=== PATIENT | female | born 1965 | race African-American/Black ===

== ENCOUNTER 2016-10-25 15:49 | Emergency (ER) | payer MEDICAID ==
[~2016-10-25] VITALS: Ht 167.6 cm; Wt 72.6 kg
--- NOTE | 2016-10-25 16:17 | Emergency Room Report ---
History of Present Illness General Chief Complaint: Abdominal Pain Source: Patient Present Illness HPI Patient present with complaints of diffuse lower abdominal pain She complains of vaginal spotting Decreased oral intake Pain is 7/10 cramping in nature Patient initially reports chest pain to the triage however upon evaluation reports of the pain is in the lower abdomen she feels some pressure moving upward into the lower epigastric area Denies any diarrhea denies any flank pain however she does have some lower back cramping as well Patient had bowel movement yesterday however feels that she has had decreased movement in general Patient is in pain management Allergies: Coded Allergies: ERYTHROMYCIN BASE (Verified Allergy, Intermediate, 10/25/16) Patient History Past Medical History: see triage record Pertinent Family History: none Now: No Reviewed Nursing Documentation: PMH: Agreed, PSxH: Agreed Nursing Documentation-PMH Hx Cardiac Problems: No Hx Hypertension: No Hx Pacemaker: No Hx Asthma: No Hx COPD: No Hx Diabetes: No Hx Cancer: No Hx Dialysis: No History Of Psychiatric Problem: No Hx Neurological Problems: Yes - herniated disc Hx Cerebrovascular Accident: No Hx Seizures: No Review of Systems All Other Systems: negative except mentioned in HPI Physical Exam Vital Signs Date Time Temp Pulse Resp B/P Pulse Ox O2 Delivery O2 Flow Rate FiO2 10/25/16 15:52 98.1 78 16 127/78 98 Room Air Sp02 EP Interpretation: reviewed, normal General Appearance: mild distress Head: normocephalic, atraumatic Eyes: bilateral eye EOMI, bilateral eye PERRL ENT: normal pharynx Neck: full range of motion, supple Respiratory: lungs clear, normal breath sounds Cardiovascular #1: regular rate, rhythm, no edema Gastrointestinal: soft, tenderness - Patient feels uncomfortable diffusely difficult to localize the pain mainly bilateral lower abdomen, , Genitourinary: no CVA tenderness Musculoskeletal: normal inspection Neurologic: alert, oriented x3 Skin: normal color, no rash Lymphatic: no adenopathy Medical Decision Making Diagnostic Impression: Primary Impression: Abdominal pain Additional Impressions: Fibroid Fibroid, uterine Leukocytosis ER Course Multiple differentials considered including but not limited to, ovarian torsion , appendicitis, bowel obstruction Given the patient had initially CAT scan from outside facility this was not initially obtained patient's blood work however reveals elevated white blood for count therefore CT was obtained for evaluation Multiple differentials are red on the CT including tubo-ovarian abscess At this time patient was requested for admission secondary to insurance purposes requires transfer at this time remaining hemodynamically stable and appropriate for transfer for continued care at primary facility patient was given pain medicine along with antibiotics and requires close inpatient followup with multi specialty consultation Labs Test 10/25/16 16:55 10/25/16 17:40 White Blood Count 18.8 K/UL (4.8-10.8) Red Blood Count 3.93 M/UL (4.20-5.40) Hemoglobin 8.6 G/DL (12.0-16.0) Hematocrit 26.9 % (37.0-47.0) Mean Corpuscular Volume 69 FL (80-99) Mean Corpuscular Hemoglobin 21.9 PG (27.0-31.0) Mean Corpuscular Hemoglobin Concent 31.9 G/DL (32.0-36.0) Red Cell Distribution Width 19.3 % (11.6-14.8) Platelet Count 533 K/UL (150-450) Mean Platelet Volume 6.9 FL (6.5-10.1) Neutrophils (%) (Auto) % (45.0-75.0) Lymphocytes (%) (Auto) % (20.0-45.0) Monocytes (%) (Auto) % (1.0-10.0) Eosinophils (%) (Auto) % (0.0-3.0) Basophils (%) (Auto) % (0.0-2.0) Differential Total Cells Counted 100 Neutrophils % (Manual) 71 % (45-75) Lymphocytes % (Manual) 14 % (20-45) Monocytes % (Manual) 12 % (1-10) Eosinophils % (Manual) 2 % (0-3) Basophils % (Manual) 0 % (0-2) Band Neutrophils 1 % (0-8) Platelet Estimate Increased Platelet Morphology Normal Hypochromasia 1+ Anisocytosis 1+ Microcytosis 1+ Sodium Level 138 mEQ/L (135-145) Potassium Level 3.6 mEQ/L (3.4-4.9) Chloride Level 97 mEQ/L (98-107) Carbon Dioxide Level 26 mEQ/L (20-30) Anion Gap 15 (5-15) Blood Urea Nitrogen 5 mg/dL (7-23) Creatinine 0.7 mg/dL (0.5-0.9) Estimat Glomerular Filtration Rate > 60 mL/min (>60) Glucose Level 109 mg/dL (74-106) Calcium Level 9.3 mg/dL (8.6-10.2) Total Bilirubin 0.6 mg/dL (0.0-1.2) Aspartate Amino Transf (AST/SGOT) 46 U/L (5-40) Alanine Aminotransferase (ALT/SGPT) 23 U/L (3-33) Alkaline Phosphatase 197 U/L (35-104) Total Protein 7.5 g/dL (6.6-8.7) Albumin 3.1 g/dL (3.5-5.2) Globulin 4.4 g/dL Albumin/Globulin Ratio 0.7 (1.0-2.7) Lipase 12 U/L (< 60) Urine Color Ghada Urine Appearance Slightly cloudy Urine pH 9 (4.5-8.0) Urine Specific [place] 1.010 (1.005-1.035) Urine Protein 2+ (NEGATIVE) Urine Glucose (UA) Negative (NEGATIVE) Urine Ketones 2+ (NEGATIVE) Urine Occult Blood 4+ (NEGATIVE) Urine Nitrite Negative (NEGATIVE) Urine Bilirubin Negative (NEGATIVE) Urine Ictotest Negative Urine Urobilinogen 4 MG/DL (0.0-1.0) Urine Leukocyte Esterase 1+ (NEGATIVE) Urine RBC 10-15 /HPF (0 - 2) Urine WBC 2-4 /HPF (0 - 2) Urine Squamous Epithelial Cells Few /LPF (NONE/OCC) Urine Amorphous Sediment Few /LPF (NONE) Urine Bacteria Few /HPF (NONE) Rhythm Strip Diag. Results EP Interpretation: yes Rate: 77 Rhythm: NSR, no PVC's, no ectopy CT/MRI/US Diagnostic Results CT/MRI/US Diagnostic Results : Impression CT abdomen pelvis: Large uterine fibroids, large adnexal masses, multiple differentials including tubo-ovarian abscess Last Vital Signs Date Time Temp Pulse Resp B/P Pulse Ox O2 Delivery O2 Flow Rate FiO2 10/25/16 15:52 98.1 78 16 127/78 98 Room Air Status: improved Disposition: XFER SHT-TRM HOSP Condition: Improved Referrals: [facility],REFERRING (PCP) ALEXSANDER ESTRADA D.O. October 25, 2016 16:17
[2016-10-25 16:30] VITALS: BP 135/44
[2016-10-25 17:10] LABS: MEAN CORPUSCULAR HEMOGLOBIN 21.9 PG (27.0-31.0); MEAN CORPUSCULAR HGB CONC 31.9 G/DL (32.0-36.0); MEAN CORPUSCULAR VOLUME 69 FL (80-99); MEAN PLATELET VOLUME 6.9 FL (6.5-10.1); PLATELET COUNT 533 K/UL (150-450); RED BLOOD COUNT 3.93 M/UL (4.20-5.40); RED CELL DISTRIBUTION WIDTH 19.3 % (11.6-14.8); WHITE BLOOD COUNT 18.8 K/UL (4.8-10.8)
[2016-10-25 17:25] LABS: ALANINE AMINOTRANSFERASE 23 U/L (3-33); ALBUMIN/GLOBULIN RATIO 0.7 (1.0-2.7); ANION GAP 15 (5-15); ASPARTATE AMINO TRANSFERASE 46 U/L (5-40); CALCIUM 9.3 mg/dL (8.6-10.2); CARBON DIOXIDE 26 mEQ/L (20-30); CHLORIDE 97 mEQ/L (98-107); CREATININE 0.7 mg/dL (0.5-0.9); GLOMERULAR FILTRATION RATE > 60 mL/min (>60); HEMOLYSIS 0; LIPASE 12 U/L (< 60); POTASSIUM 3.6 mEQ/L (3.4-4.9); SODIUM 138 mEQ/L (135-145); TOTAL PROTEIN 7.5 g/dL (6.6-8.7)
[2016-10-25 17:30] VITALS: BP 136/61
[2016-10-25 18:20] LABS: APPEARANCE,URINE SLIGHTLY CLOUDY; KETONES,URINE 2+ (NEGATIVE); LEUKOCYTE ESTERASE ,URINE 1+ (NEGATIVE); NITRITE,URINE NEGATIVE (NEGATIVE); PH,URINE 9 (4.5-8.0); PROTEIN,URINE 2+ (NEGATIVE); UROBILINOGEN,URINE 4 MG/DL (0.0-1.0)
[2016-10-25 18:25] LABS: AMORPHOUS SEDIMENT,UR FEW /LPF; BACTERIA,URINE FEW /HPF; ICTOTEST NEGATIVE; SQUAMOUS EPITHELIAL CELL,UR FEW /LPF (NONE/OCC)
[2016-10-25 18:30] VITALS: BP 119/57
[2016-10-25 19:30] VITALS: BP 129/65
[2016-10-25 20:10] LABS: ANISOCYTOSIS 1+; BAND NEUTROPHILS % (MANUAL) 1 % (0-8); EOSINOPHILS % (MANUAL) 2 % (0-3); HYPOCHROMASIA 1+; LYMPHOCYTES % (MANUAL) 14 % (20-45); MICROCYTES 1+; NEUTROPHILS % (MANUAL) 71 % (45-75); TOTAL CELLS COUNTED 100
[2016-10-25 20:11] LABS: BASOPHILS % (MANUAL) 0 % (0-2); PLATELET ESTIMATE INCREASED; PLATELET MORPHOLOGY NORMAL
[2016-10-25 20:30] VITALS: BP 142/82
[2016-10-25] MEDS ORDERED: Ketorolac 30mg Inj IV ONE (20:30)
[2016-10-25] MEDS ORDERED: Zosyn 3.375gm inj ONE (20:51)
[2016-10-25] MEDS ORDERED: Piperacillin/Tazobactam 3.375 GM in NS 110 ML IVPB ONE (21:00)
[2016-10-25 21:24] VITALS: BP 142/82
--- NOTE | 2016-10-26 09:21 | Diagnostic Imaging Report ---
Clinical Indication: Abdominal pain Technique: No oral contrast utilized, per emergency room physician request IV administration nonionic contrast. Venous phase spiral acquisition obtained through the abdomen and pelvis. Multiplanar reconstructions were generated. Total dose length product 871 mGycm. CTDIvol(s) 17 mGy. Dose reduction achieved using automated exposure control Comparison: None Findings: IV contrast opacification is suboptimal. The appendix is normal. There are colonic diverticula. No evidence of diverticulitis. No small bowel distention. Contrast is seen to traverse the entirety of large and small bowel. No small or large bowel wall thickening. No free or loculated peritoneal air or fluid is evident. The distal esophagus, stomach, duodenum are unremarkable. The uterus is diffusely massively enlarged with multiple exophytic and mural masses, consistent with uterine fibroids. There is a very large pedunculated fibroid which measures 11 cm transverse by 8.6 cm AP by 10 centimeters craniocaudad. There is a multicystic left adnexal mass. This measures 8.5 cm AP by 6.1 cm transverse by 6 cm craniocaudad. It is contiguous with the left side of the uterus. There is suggestion of a multicystic right ovarian mass which measures approximately 4.3 cm long axis dimension. There is some infiltration of the fat in the adnexal regions bilaterally. The liver is mildly hypoattenuating, consistent with fatty change. It is also mildly enlarged. The gallbladder, bile ducts, pancreas, spleen, adrenals, kidneys are unremarkable. There are somewhat prominent retroperitoneal lymph nodes. Some atelectasis is seen at the right lung base. The bones are unremarkable. Impression: Massively enlarged fibroid uterus, including a very large pedunculated fibroid. 8.5 x 6.1 x 6 cm left adnexal multicystic mass. Given that this is contiguous with the uterus, it could represent a cluster of necrotic fibroids. However, appearance is suspicious for a multicystic ovarian neoplasm. Tubo-ovarian abscess is also a differential consideration Smaller similar lesion is seen in the right adnexal region, although this is more questionable. No infiltration of the periadnexal fat bilaterally, also worrisome for neoplastic involvement. Alternatively, this could represent fat infiltration prominent inflammatory process. Prominent but not frankly enlarged retroperitoneal lymph nodes, adenopathy not excludable. Mild fatty liver. Mild hepatomegaly Right basilar pulmonary atelectasis Diverticulosis. No evidence of diverticulitis This agrees with the preliminary interpretation provided overnight by Dr. White The CT scanner at [facility] is accredited by the [employer] and the scans are performed using protocols designed to limit radiation exposure to as low as reasonably achievable to attain images of sufficient resolution adequate for diagnostic evaluation.
== END 2016-10-25 21:25 | disposition short-term general hospital (02) ==
LOC: EMR 16:10
DX: R10.9 Unspecified abdominal pain (principal); D25.9 Leiomyoma of uterus, unspecified; D72.829 Elevated white blood cell count, unspecified; R07.9 Chest pain, unspecified; Z88.8 Allergy status to other drugs, medicaments and biological substances; R19.09 Other intra-abdominal and pelvic swelling, mass and lump
CPT/HCPCS: 36415; 74177; 80053; 81003; 83690; 85007; 85025; 96360; 96374; 96375; 99285; J1170; J1885; J2405; J2543; J7040; Q9967